=== PATIENT | female | born 1970 | race Caucasian/White ===

== ENCOUNTER 2018-03-06 09:28 | Emergency (ER) | payer MEDICAID ==
[~2018-03-06] VITALS: Ht 162.6 cm; Wt 67.6 kg
[2018-03-06 09:29] VITALS: BP 125/77
== END 2018-03-06 10:21 | disposition home or self-care (01) ==
LOC: ED 09:28
DX: M54.6 Pain in thoracic spine (principal); M54.42 Lumbago with sciatica, left side